=== PATIENT | female | born 1975 | race Caucasian/White ===

== ENCOUNTER → 2016-07-05 | Outpatient (CLI) | payer BC ==
[~2016-07-05] MED LIST: GADAVIST IV PRN; LIDO/EPINEPHRINE/SOD BICARB 20 ML VIAL INFIL ONE; XYLOCAINE 1%/SOD BICARB 20 ML VIAL INFIL ONE
--- NOTE | 2016-07-05 12:30 | Discharge Instructions ---
Discharge Instructions Procedure Procedure Date: Jul 05, 2016. Reason for visit: Left Enhancement. Discharge Discharge Date: Jul 05, 2016. Discharge Diagnosis: post left breast MRI guided biopsy Instructions Activity Recommendations: Additional Limitations (see below) Return to School/Work: no limitations Recommended Home Diet: No Limitations Provider Instructions: ACTIVITY RECOMMENDATIONS: * No lifting, pushing, pulling or exercising the affected side for three days. RETURN TO SCHOOL/WORK: * You may return to work/school after the procedure, but do not perform any strenuous activities for 24 to 48 hours. MEDICATIONS: * Tylenol (two 325 mg) every four to six hours if needed for mild pain (if not allergic to Tylenol). DIET: * Resume previous diet. SPECIAL CARE INSTRUCTIONS: * Keep biopsy site dry for 24 hours. May shower after 24 hours, but do not soak (bathe) incision. * May remove Tegaderm (plastic patch) tomorrow AFTER showering. * Leave the steri-strips on for one week. Allow the steri-strips to fall off by themselves. If not off after one week, you may remove them. You may place a Bandaid crosswise over the strips, if desired. * Apply ice 10 minutes on and 10 minutes off as needed. * Wear a bra at bedtime to sleep more comfortably for 2-3 days. * Your referring physician should have the results after approximately 5 to 7 business days. * Call for unusual bleeding, fever, drainage, etc or if you have any questions call [phone] during normal business hours or after hours call Dr Fragoso, . FOLLOW UP VISIT: Follow-up with Referring Physician as scheduled. Joanie Ferrera Recommendations: Call your doctor if: * Temperature above 101 degrees * Pain not relieved by pain medicine ordered * There is increased drainage or redness from any incision * You have any unanswered questions or concerns. Your Doctors Instructions noted above were prepared by provider Melany Fragoso. Patient Signature Section: Patient Instructions Signature Page Natividad Oscar Patient (or Guardian) Signature/Date: I have read and understand the instructions given to me by my caregivers. Caregiver/RN/Doctor Signature/Date: The above-named patient and/or guardian has received patient instructions on this date. + Original Patient Signature Page (only) stays with chart. Please make copy for patient.
--- NOTE | 2016-07-05 14:07 | MAMMOGRAPHY REPORT ---
THIS REPORT HAS BEEN AMENDED. MRI BIOPSY LEFT BREAST: 07/05/2016 CLINICAL HISTORY: 2.1 cm non-mass enhancement in the anterior superior subareolar left breast. Hist ory of BRCA2 gene. Patient presented for MRI guided biopsy. COMPARISON: Comparison is made to exams dated: 05/17/2016 breast MRI, 11/12/2015 mammogram, 12/28/2014 mammogram, 12/28/2014 stereotactic biopsy, 11/10/2014 mammogram, and 11/06/2013 mammogram - [facility]. PATIENT CONSENT: After explaining the risks, benefits and alternatives of the procedure to the patie nt, informed consent was obtained both verbally and in writing. Specific risks include: Bleeding, i nfection, puncture of adjacent structure, medication reaction, breast or lung injury, sampling error . PROCEDURE DESCRIPTION: A timeout was performed prior to starting the procedure, and the left breast was agreed as the site for biopsy. The patient was placed prone on a 1.5 Juany MRI scanner. The lateral aspect of the left breast was cleansed with ChloraPrep. The left breast was positioned in a dedicated breast coil and MRI guidanc e grid device. After localizing sequences were obtained, pre-and postcontrast axial sequences were obtained, using 6 cc Gadavist without immediate reaction. The postcontrast images confirm the persistence 2.1 cm ar ea of non-mass enhancement in the superior subareolar left breast just posterior to susceptibility a rtifact from a biopsy marker clip denoting an area of prior stereotactic biopsy. Using these images , targeting was performed using Transave software. The skin was re-prepped with Betadine through the grid, and after local anesthesia was achieved, an introducer sheath and localizing catalyst operator gasoline were placed into left breast to be a lateral approach. A fter confirming adequate placement of the obturator sheath, 8 samples were obtained using a Suros AT 9-gauge vacuum-assisted biopsy device. Post biopsy images demonstrate mild persistent enhancement in the approximate 1:00 to 2 o'clock posi tion at the site of the biopsy, therefore 3 additional core biopsy samples were obtained. After the samples a metallic marker was placed at the biopsy site through the introducer sheath. The patient tolerated the procedure well and there was no immediate complication. Hemostasis was ac hieved after several minutes of manual compression. The samples were sent to pathology in an approp riately labeled container. Pending benign pathology results, a follow-up MRI is recommended in 6 months to establish new baseli ne and assure adequate sampling. IMPRESSION: MRI BIOPSY Status post MRI guided biopsy of the 2.1 cm area of non-mass enhancement in the superior subareolar left breast, with biopsy marker placed at the site. Pending benign pathology results, a follow-up breast MRI in 6 months is recommended to demonstrate s tability. Melany Fragoso M.D. 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 Pathology results from the MRI guided biopsy of non-mass enhancement in the left subareolar breast y ielded benign breast tissue with fibrocystic and fibroadenomatoid changes. Rare microcalcifications noted. No DCIS or invasive carcinoma was reported. The pathology results are concordant with the imaging appearance. A short interval follow-up breast MRI is recommended to ensure stability after biopsy in 6 months.
--- NOTE | 2016-07-20 12:36 | MAMMOGRAPHY REPORT ---
UNILATERAL LEFT DIGITAL DIAGNOSTIC MAMMOGRAM TOMOSYNTHESIS: 07/05/2016 CLINICAL HISTORY: Status post MRI guided biopsy in the anterior left breast of non-mass enhancement. Please refer to the report from left breast MRI guided biopsy performed at the same time for full de tail. IMPRESSION: POST PROCEDURE IMAGING FOR MARKER PLACEMENT Please refer to the report from left breast MRI guided biopsy performed at the same time for full de tail. Approximately 10% of breast cancers are not detected with mammography. A negative mammographic repor t should not delay biopsy if a clinically suggestive mass is present. Melany Fragoso M.D. ay/:07/20/2016 10:34:55 Director Of Education: Patricia DAVIS(Junito)(M), [facility] BI-RADS Code: Post Procedure Imaging For Marker Placement
== END | disposition home or self-care (01) ==
LOC: C.MRI 09:46
PROVIDERS: ATTEND Obstetrics & Gynecology
DX: R92.8 Other abnormal and inconclusive findings on diagnostic imaging of breast (principal)

== ENCOUNTER → 2016-07-12 | Outpatient (CLI) | payer BC | END | disposition home or self-care (01) | LOC: C.PAPS 11:57 | PROVIDERS: ATTEND Obstetrics & Gynecology | DX: Z01.419 Encounter for gynecological examination (general) (routine) without abnormal findings (principal) ==

== ENCOUNTER → 2016-11-16 | Outpatient (CLI) | payer BC ==
--- NOTE | 2016-11-16 14:43 | MAMMOGRAPHY REPORT ---
BILATERAL DIGITAL SCREENING MAMMOGRAM TOMOSYNTHESIS WITH CAD: 11/16/2016 CLINICAL HISTORY: Routine screening. TECHNIQUE: Breast tomosynthesis in addition to standard 2D mammography was performed. Current study was also evaluated with a Computer Aided Detection (CAD) system. COMPARISON: Comparison is made to exams dated: 07/05/2016 mammogram, 05/26/2016 mammogram, 11/12/2015 m ammogram, 07/13/2015 mammogram, 11/10/2014 mammogram, and 11/06/2013 mammogram - [facility]. BREAST COMPOSITION: The tissue of both breasts is heterogeneously dense, which may obscure small mas ses. FINDINGS: No suspicious masses, calcifications, or areas of architectural distortion are noted in ei ther breast. There has been no significant interval change compared to prior exams. A biopsy marker clip is again noted in the left subareolar breast. IMPRESSION: ACR BI-RADS CATEGORY 2: BENIGN There is no mammographic evidence of malignancy. A 1 year screening mammogram is recommended. Note t hat the patient is also due for six-month follow-up breast MRI December 2016. The patient will receive w ragini notification of the results. Approximately 10% of breast cancers are not detected with mammography. A negative mammographic report should not delay biopsy if a clinically suggestive mass is present. Sofía Choi M.D. /:11/16/2016 07:45:23 Cyber Incident Analyst: Shabbir ISAACS)(Felipe), [facility] letter sent: Normal 1/2 BI-RADS Code: ACR BI-RADS Category 2: Benign
== END | disposition home or self-care (01) ==
LOC: C.MAMM 07:24
PROVIDERS: ATTEND Family Medicine
DX: Z12.31 Encounter for screening mammogram for malignant neoplasm of breast (principal)

== ENCOUNTER → 2017-01-16 | Outpatient (CLI) | payer BC ==
[~2017-01-16] MED LIST changes: -LIDO/EPINEPHRINE/SOD BICARB 20 ML VIAL INFIL ONE; -XYLOCAINE 1%/SOD BICARB 20 ML VIAL INFIL ONE
--- NOTE | 2017-01-17 07:45 | MAMMOGRAPHY REPORT ---
BREAST MRI OF BOTH BREASTS : 01/16/2017 CLINICAL HISTORY: 41-year-old woman presents for a follow-up breast MRI to ensure stability after MRI guided biopsy in the 12:00 anterior left breast which yielded benign pathology. BRCA2 positive. COMPARISON: Comparison is made to exams dated: 11/16/2016 mammogram, 07/05/2016 mammogram, 07/05/2016 MR I biopsy, 05/26/2016 ultrasound, 05/26/2016 mammogram, and 05/17/2016 breast MRI - [facility]. TECHNIQUE: Using a 1.5 Juany magnet and dedicated breast coil, multisequence axial images were obtain ed through the breasts. After uneventful IV administration of 6 mL of Gadavist, dynamic multiphase c ontrast-enhanced axial images, and sagittal postcontrast were obtained. Temporal subtraction axial i mages and 3-D MIP images are provided. Everything was then reviewed on a 3-D workstation, [employer]. FINDINGS: There is moderate background parenchymal enhancement of the breasts, with numerous round an d oval sub-halfcentimeter scattered enhancing foci bilaterally. There is susceptibility artifact fro m the metallic biopsy marker in the 12:00 anterior/subareolar left breast, denoting the site of prior MRI guided biopsy, which yielded benign pathology results. (The biopsy marker placed after a stereo tactic biopsy performed in December 2014 was removed during the MRI guided biopsy performed in June 30, as it was located in the same area as the contrast-enhancement.) Currently, the 2.1 x 1.4 cm foc al non-mass enhancement in the anterior left breast is significantly less prominent, which may be due to decreased enhancement as well as tissue sampling. Nevertheless, no new suspicious enhancing mass , non-mass enhancement or suspicious kinetics is seen in the left breast or throughout the right eliecer st. No focal skin thickening or nipple retraction. No suspicious axillary adenopathy bilaterally. IMPRESSION: ACR BI-RADS CATEGORY 2: BENIGN The previously observed 2.1 x 1.4 cm non-mass enhancement in the anterior 12:00/subareolar left breas t is no longer seen, and a biopsy marker clip is in place, compatible with adequate tissue sampling a nd confirming benignity. There is no suspicious enhancing mass or suspicious non-mass enhancement id entified in either breast. Overall, no MRI evidence of malignancy. Return to annual mammogram scree jameel schedule is recommended. Would also recommend continuation of annual screening breast MRI, give n the personal history of dense breasts and BRCA2 positivity. The patient will receive written notification of the results. Melany Fragoso M.D. ay/:01/16/2017 21:53:34 Meat Slicer: forestry consultant, [facility] letter sent: Normal 1/2 BI-RADS Code: ACR BI-RADS Category 2: Benign
== END | disposition home or self-care (01) ==
LOC: C.MRI 07:07
PROVIDERS: ATTEND Obstetrics & Gynecology
DX: Z15.01 Genetic susceptibility to malignant neoplasm of breast (principal); Z15.02 Genetic susceptibility to malignant neoplasm of ovary

== ENCOUNTER → 2017-08-02 | Outpatient (CLI) | payer OTHER | END | disposition home or self-care (01) | LOC: C.PAPS 09:46 | PROVIDERS: ATTEND Obstetrics & Gynecology | DX: Z12.4 Encounter for screening for malignant neoplasm of cervix (principal) ==